=== PATIENT | female | born 1995 | race African-American/Black ===

== ENCOUNTER 2024-08-07 13:31 | Outpatient (CLI) | payer MEDICAID, SELFPAY ==
--- NOTE | ~2024-08-07 | US_ITS ---
EXAM/PROCEDURE: US OB <=14 wk fetus w TV - 08/07/2024 13:49 CDT HISTORY: 29 years old Female with VIABLILITY COMPARISON: None available. TECHNIQUE: Multiple transvaginal images were obtained. FINdINGS: There is a single, live, intrauterine gestation with a heart rate of 175 bpm. The crown-rump length is 1.5 cm, which is equivalent to a 8 week, 0 day gestation. This gives an estimated date of deliver y of 03/19/2025. An unremarkable yolk sac is seen. The gestational sac is unremarkable. There is no myometrial abnormality. The ovaries appear unremark able. No significant free fluid is seen. IMPRESSION: Single live embryo with estimated date of delivery of 03/19/25. Reviewed, dictated and finalized at location A.
--- OUTSIDE RECORDS SUMMARY | 2024-08-07 14:59 | XMS_ITS | Clinical Summary ---
Author Organization [facility] Address [address] [place] [address] Care Team Providers Care Insurance Producer Name Role Phone Lizandro Lovett MD Primary Care Provider [phone] Allergies No known active allergies Medications gabapentin (NEURONTIN) 300 mg capsule Take 1 capsule (300 mg total) by mouth 3 (three) times a day 30 capsule 11/04/2023 5 Active Active Problems Problem Noted Date Diagnosed Date Leukocytosis 11/03/2023 Status post appendectomy 11/02/2023 Sepsis without acute organ dysfunction 4 Intra-abdominal abscess 11/01/2023 Social History Tobacco Use Types Packs/Day Years Used Date Smoking Tobacco: Never Smokeless Tobacco: Never Tobacco Cessation:Counseling Given: Not Answered [facility] Utilities Answer Date Recorded In the past 12 months has [employer] electric, gas, oil, or water company threatened to shut off services in your home? No 11/01/2023 Social Connection and Isolat ion Panel [NHANES] Answer Date Recorded In a typical week, how many times do you talk on the phone with family, friends, or neighbors? More than three times a week 11/01/2023 How often do you get togethe r with friends or relatives? More than three times a week 11/01/2023 How often do you attend chur ch or latter day services? Never 11/01/2023 Do you belong to any clubs o r organizations such as faith groups, unions, fraternal or athletic groups, or school groups? No 11/01/2023 How often do you attend meet ings of the clubs or organizations you belong to? Never 11/01/2023 Are you , , di vorced, , never , or living with a partner? Living with partner 11/01/2023 Overall Financial Resource Strain (CARDIA) Answe r Date Recorded How hard is it for you to pa y for the very basics like food, housing, medical care, and heating? Very hard 11/01/2023 Hunger Vital Sign Answer Date Recorded Within the past 12 months, y ou worried that your food would run out before you got the money to buy more. Never true 11/01/19 24 Within the past 12 months, t he food you bought just didn't last and you didn't have money to get more. Never true 11/01/2023 PRAPARE - Transportation Answer Date Re corded In the past 12 months, has l ack of transportation kept you from medical appointments or from getting medications? No 06/2023 In the past 12 months, has l ack of transportation kept you from meetings, work, or from getting things needed for daily living? No 11/01/2023 Housing Stability Vital Sign Answer Jackson e Recorded In the last 12 months, was t here a time when you were not able to pay the mortgage or rent on time? No 11/01/2023 In the past 12 months, how m any times have you moved where you were living? 0 11/01/2023 At any time in the past 12 m [facility], were you homeless or living in a chcf (including now)? No 11/01/2023 Personal Safety Answer Date Recorded Have you ever been in or are you currently in a harmful physical or emotional relationship or is someone making you feel afraid or unsafe? Denies 11/01/2023 Comments Unknown Sex and Gender Information Value Date Recorded Sex Assigned at Not on file Legal Sex Female 9:48 PM [employer] AP[employer]ENT[employer] Gender Identity Not on file Sexual Orientation Not on file Obstetrics History Last Filed Vital Signs Vital Sign Reading Time Taken Comments Blood Pressure 115/86 11/04/2023 8:35 AM CDT Pulse 86 11/04/2023 8:35 AM CDT Temperature 36.8 C (98.2 F) 11/04/2023 8:35 AM CDT Respiratory Rate 16 11/04/2023 8:35 AM CDT Oxygen Saturation 98% 11/04/2023 8:35 AM CDT Inhaled Oxygen Concentration - - Weight 85 kg (187 lb 8 oz) 11/01/2023 8:02 AM CD T Height 154.9 cm (5' 1 ) 11/01/2023 8:02 AM CDT Body Mass Index 35.43 11/01/2023 8:02 AM CDT Plan of Treatment Health Maintenance Due Date Last Done Comments Cervical Cancer Screening 1995 Depression Screening 1995 Hepatitis C Screening 1995 HPV Vaccines (2 - 2-dose series) 06/21/2010 12/19/2009 Regular Well Visit/Exam 18-64 2013 DTaP/Tdap/Td Vaccine (7 - Td or Tdap) 12/20/2019 12/19/2009, 12/19/2002, 11/26/1998, Additional history exists Influenza Vaccine (Season Ended) 2024 Hepatitis B Screening Completed 02/18/1997 , 1995, 1995 Varicella Vaccines Completed 12/19/2009, 12/19/2002 Pneumococcal vaccine <65 Aged Out No longer eligible based on patient's age to complete this topic Insurance [employer] Advance Directives For more information, please contact: [phone] * Full Code (Latest Code Status on File) Date Activated Date Inactivated Comments 11/01/2023 8:01 AM 11/04/2023 9:37 PM Care Teams Insurance Producer Relationship Specialty Start Date End Date Lizandro Lovett MD [address] [place] [id number] PCP - General Emergency Medicine 11/01/23
--- OUTSIDE RECORDS SUMMARY | 2024-08-07 14:59 | XMS_ITS | Referral Summary ---
Author Organization [facility] Address [address] [place] [address] Care Team Providers Care Baccarat Dealer Name Role Phone Lizandro Lovett MD Primary Care Provider Allergies No known active allergies Medications gabapentin [...] Tobacco: Never Tobacco Cessation:Counseling Given: Not Answered [facility] Utilities Answer Date Recorded In the past 12 months has [employer] electric, gas, oil, or water company threatened [...] often do you attend chur ch or gnosticism services? Never 11/01/2023 Do you belong to any clubs o r organizations such as judaism groups, unions, fraternal or athletic groups, or [...] any time in the past 12 m [facility], were you homeless or living in a half-way (including now)? No 11/01/2023 Personal Safety Answer Date Recorded Have you ever been in or are you currently in a harmful physical or emotional relationship or is someone making you feel afraid or unsafe? Denies 11/01/2023 Comments Unknown Sex and Gender Information Value Date Recorded Sex Assigned at Not on file Legal Sex Female 9:48 PM RN CALL CENTER Gender Identity Not on file Sexual Orientation Not on file Last Filed Vital Signs Vital Sign Reading [...] 11/01/2023 8:02 AM CDT Plan of Treatment Not on file Insurance IDLA ID[employer] Advance Directives For more information, please contact: [phone] * Full Code (Latest Code Status on File) Date Activated Date Inactivated Comments 11/01/2023 8:01 AM 11/04/2023 9:37 PM Care Teams Baccarat Dealer Relationship Specialty Start Date End Date Lizandro Lovett MD [address] [place] [id number] PCP - General Emergency Medicine 11/01/23
== END 2024-08-07 13:32 | disposition home or self-care (01) ==
LOC: ANHIMG 13:37
PROVIDERS: Visit Provider Nurse Practitioner
DX: O36.80X0 Pregnancy with inconclusive fetal viability, not applicable or unspecified (principal); Z3A.00 Weeks of gestation of pregnancy not specified
CPT/HCPCS: 76801; 76817

== ENCOUNTER 2024-12-12 13:00 | Outpatient (RCR) | payer OTHER, SELFPAY | END 2025-02-12 06:23 | disposition home or self-care (01) | LOC: ANHDMC 13:00 | PROVIDERS: Visit Provider Obstetrics & Gynecology Gynecology | DX: O24.419 Gestational diabetes mellitus in pregnancy, unspecified control (principal); Z3A.00 Weeks of gestation of pregnancy not specified; Z71.89 Other specified counseling | CPT/HCPCS: G0108 ==

== ENCOUNTER 2025-02-27 15:10 | Outpatient (CLI) | payer OTHER, SELFPAY ==
--- NOTE | ~2025-02-27 | US_ITS ---
EXAMINATION: US OB follow up DATE: 02/27/2025 16:30 INDICATION: Expected size greater than expected for estimated gestational age TECHNIQUE: Real-time ultrasound of the pelvis was performed. The interpreting radiologist was not present for the study. COMPARISON: None. FINDINGS: There is a single living fetus in vertex presentation. The placenta is anterior and not low-lying. heart rate is 158 beats per minute (bpm). The amniotic fluid index is 7.4 cm, which is slightly beyond the lower limits of normal. (5th%-95%: 7.5-24.4 cm at 37 weeks estimated gestational age). Normal cervical length of 6 cm. The following biometric data were obtained: BPD: 9.1 cm -> 36 weeks 5 days Head circumference: 33.0 cm -> 37 weeks 4 days Abdominal circumference: 32.7 cm -> 36 weeks 4 days Femur length: 6.9 cm -> 35 weeks 2 days These measurements are concordant. Head circumference to abdominal circumference ratio: 1.01 (normal range 0.92-1.06). Estimated weight: 2921 g (+/-) 438 g or 6 lbs. 7 oz. (+/-) 15 oz. IMPRESSION: 1. Single living fetus in vertex presentation with heart rate of 158 bpm. 2. Oligohydramnios with amniotic fluid index of 7.4 similar minimally below the normal range of 7.5-24.4 cm 37 week estimated gestational age. 3. Estimated weight is 26th percentile by Hadlock criteria when 03/15/2025 is used as the estimated date of delivery (COLLETTE). Please correlate with clinical information or earlier ultrasounds for most accurate COLLETTE. Reviewed, dictated and finalized at location A. IMPRESSION: 1. Single living fetus in vertex presentation with heart rate of 158 bpm. 2. Oligohydramnios with amniotic fluid index of 7.4 similar minimally below the normal range of 7.5-24.4 cm 37 week estimated gestational age. 3. Estimated weight is 26th percentile by Hadlock criteria when 5 is used as the estimated date of delivery (COLLETTE). Please correlate with clinic al information or earlier ultrasounds for most accurate COLLETTE.
--- OUTSIDE RECORDS SUMMARY | 2025-02-27 17:18 | XMS_ITS | Clinical Summary ---
Author Organization [facility] Address [address] [place] [id number] Care Team Providers Care Acute Care Registered Nurse Name Role Phone None, Provider MD Primary Care Provider Unavaila ble Encounters Date Type Department Care Team Description 12/06/2024 2:29 PM CDT - 12/06/2024 11:59 PM CDT Hospital Encounter [facility]ound [address] [place], [place] [id number] Nelly Bolivar MD Discharge Disposition: Home or Self Care (Routine Discharge) 12/06/2024 Travel from Last 3 Months Social History Tobacco Use Types Packs/Day Years Used Date Smoking Tobacco: Never Assessed Comments Unknown Sex and Gender Information Value Date Recorded Sex Assigned at Female 12/06/2024 2:23 PM CDT Legal Sex Female 7:45 PM CDT Gender Identity Not on file Sexual Orientation Not on file Plan of Treatment Health Maintenance Due Date Last Done Comments Cervical Cancer Screening Pap Smear (Age 21 to 29) Every 3 Years 1995 Cervical Cancer Screening 1995 Annual Physical 1998 HPV Vaccines (2 - 2-dose series) 06/21/2010 12/19/2009 Hepatitis C 2013 DTaP, Tdap and Td Vaccines (5 - Td or Tdap) 12/20/2019 12/19/2009, 12/19/2002, 11/26/1998, Additional history exists COVID-19 Vaccine ( season) 2024 Influenza Adult (#1) 2025 Hepatitis B Vaccines Completed 02/18/1997, 1995, 1995 Hepatitis A Vaccines Aged Out No long er eligible based on patient's age to complete this topic Meningococcal B Vaccine Aged Out No l onger eligible based on patient's age to complete this topic Meningococcal Vaccine Aged Out No davis carlos eligible based on patient's age to complete this topic Pneumococcal Vaccine: Pediatrics (0 to 5 Years) and At-Risk Patients (6 to 49 Years) Aged Out No longer eligible based on patient's age to complete this topic RSV Immunizations Under 20 Months Aged Out No longer eligible based on patient's age to complete this topic Procedures Procedure Name Priority Date/Time Associated Diagnosis Comments [employer] [facility] Routine 12/06/2024 3:35 PM CDT Maternal care for excessive growth, third trimester, not applicable or unspecified ([facility]) from Last 3 Months Results * [employer] TA (12/06/2024 3:35 PM CDT) Anatomical Region Laterality Modality Abdomen Ultrasound 12/17/2024 3:56 PM CDT Impressions 12/17/2024 4:09 PM CDT =====IMPRESSION:===== Single live intrauterine measuring 25 weeks 3 days gestational age. Ordered By: NELLY BOLIVAR Interpreted By: Lake Lee MD, 12/17/2024 3:56 PM Narrative 12/17/2024 4:09 PM CDT [facility] [address] [place], [place] [address] Exam date/time: 12/06/2024 2:42 PM Examination: Limited OB ultrasound Reason For Exam: Maternal care for excessive growth, third trimester Comparison: None. Findings: Measurements: BPD: 6.13 cm, 24 weeks 6 days HC: 23.82 cm, 25 weeks 6 days AC: 21.45 cm, 26 weeks 0 days FL: 4.54 cm, 25 weeks 0 days Ratios: CI: 77.6 HC/AC: 1.11 FL/BPD: 74.1 FL/HC: 19.1 Ultrasound gestational age: 25 weeks 3 days, COLLETTE 03/18/2025 LMP based gestational age: 25 weeks 4 days, COLLETTE 03/17/2025 Estimated weight: 824 g, 39th percentile based on LMP heart rate: 160 bpm Amniotic fluid index: 16.58 cm Comments: Single live intrauterine in transverse position. Placenta anterior. Amniotic fluid is subjectively unremarkable. anatomy is not assessed on today's exam. Procedure Note Bromide, Lake Handy MD - 12/17/[address] [address] Exam date/time: 12/06/2024 2:42 PM Examination: Limited OB ultrasound Reason For Exam: Maternal care for excessive growth, thirdtrimester Comparison: None. Findings: Measurements: BPD: 6.13 cm, 24 weeks 6 days HC: 23.82 cm, 25 weeks 6 days AC: 21.45 cm, 26 weeks 0 days FL: 4.54 cm, 25 weeks 0 days Ratios: CI: 77.6 HC/AC: 1.11 FL/BPD: 74.1 FL/HC: 19.1 Ultrasound gestational age: 25 weeks 3 days, COLLETTE 03/18/2025 LMP based gestational age: 25 weeks 4 days, COLLETTE 03/17/2025 Estimated weight: 824 g, 39th percentile based on LMP heart rate: 160 bpm Amniotic fluid index: 16.58 cm Comments: Single live intrauterine in transverse position.Placenta anterior. Amniotic fluid is subjectively unremarkable. Fetalanatomy is not assessed on today's exam. =====IMPRESSION:===== Single live intrauterine measuring 25 weeks 3 days gestationalage. Ordered By: NELLY BOLIVAR Interpreted By: Lake Lee MD, 12/17/2024 3:56 PM us Nelly Bolivar MD ULTRASOUND Final Res ult from Last 3 Months Insurance Care Teams Acute Care Registered Nurse Relationship Specialty Start Date End Date None, Provider, PCP - General UNKNOWN PHYSICIAN SPECIALTY 12/06/24
--- OUTSIDE RECORDS SUMMARY | 2025-02-27 17:18 | XMS_ITS | Clinical Summary ---
Author Organization [facility] Address [address] [place] [id number] Care Team Providers Care Head Inspector Name Role Phone No, Physician Primary Care Provider [phone] Allergies No known active allergies Medications gabapentin (NEURONTIN) 300 mg capsule Take 1 capsule (300 mg total) by mouth 3 (three) times a day 30 capsule 11/04/2023 Active Active Problems Problem Noted Date Diagnosed Date Leukocytosis 11/03/2023 Status post appendectomy 11/02/2023 Sepsis without acute organ dysfunction Intra-abdominal abscess 11/01/2023 Encounters Date Type Department Care Team Description 01/18/2025 3:47 PM CDT - 01/18/2025 11:59 PM CDT Hospital Encounter [address] [address] Excessive growth affecting management of in third trimester, single or unspecified fetus Discharge Disposition: Discharge to home or self care 01/09/2025 1:50 PM CDT Lab [facility] [address] [place] [id number] 12/21/2024 2:10 PM CDT Lab [facility] [address] [place] [id number] from Last 3 Months Social History Tobacco Use Types Packs/Day Years Used Date Smoking Tobacco: Never Smokeless Tobacco: Never Tobacco Cessation:Counseling Given: Not Answered [facility] Utilities Answer Date Recorded In the past 12 months has [employer], gas, oil, or water company threatened to shut off services in your home? No 11/01/2023 Social Connection and Isolation Panel Answer Date Recorded In a typical week, how many times do you talk on the phone with family, friends, or neighbors? More than three times a week 11/01/2023 How often do you get togethe r with friends or relatives? More than three times a week 11/01/2023 How often do you attend chur ch or mosque services? Never 11/01/2023 Do you belong to any clubs o r organizations such as anabaptist groups, unions, fraternal or athletic groups, or [...] any time in the past 12 m [facility], were you homeless or living in a skilled nursing (including now)? No 11/01/2023 Personal Safety Answer Date Recorded Have you ever been in or are you currently in a harmful physical or emotional relationship or is someone making you feel afraid or unsafe? 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[employer] Gender Identity Not on file Sexual Orientation [...] AM CD T Height 154.9 cm (5' 1) 11/01/2023 8:02 AM CDT Body Mass Index 35.43 11/01/2023 8:02 AM CDT Plan of Treatment Health Maintenance Due Date Last Done Comments Cervical Cancer Screening 1995 Depression Screening 1995 HPV Vaccines (2 - 2-dose series) 06/21/2010 12/19/2009 Regular Well Visit/Exam 18-64 2013 DTaP/Tdap/Td Vaccine (7 - Td or Tdap) 12/20/2019 12/19/2009, 12/19/2002, 11/26/1998, Additional history exists Influenza Vaccine (#1) 2024 Hepatitis B Screening Completed 02/18/1997 , 1995, 1995 Varicella Vaccines Completed 12/19/2009, 12/19/2002 Hepatitis C Screening Completed 10/03/2024 Pneumococcal vaccine <65 Aged Out No longer eligible based on patient's age to complete this topic Procedures Procedure Name Priority Date/Time Associated Diagnosis Comments US OB LIMITED Schedule Routine, Read Routine (OP Routine) 01/18/2025 4:37 PM CDT Excessive growth affecting management of in third trimester, single or unspecified fetus DIFFERENTIAL AUTO Routine 01/09/2025 1:5 8 PM CDT CBC WITH AUTO DIFFERENTIAL Routine 01/09/2025 1:58 PM CDT VITAMIN D 25 HYDROXY Routine 12/21/2024 2:32 PM CDT HEMOGLOBIN A1C Routine 12/21/2024 2:32 PM CDT HIV 1/2 ANTIBODY PLUS P24 ANTIGEN Routine 12/21/2024 2:32 PM CDT RPR Routine 12/21/2024 2:32 PM CDT HEPATITIS C ANTIBODY Routine 10/03/2024 4:06 PM CDT from Last 3 Months or Most Recently Relevant to Health Maintenance Results * US OB Limited (01/18/2025 4:37 PM CDT) Anatomical Region Laterality Modality Abdomen N/A Ultrasound 01/21/2025 4:42 AM CDT Narrative 01/21/2025 5:59 AM CDT EXAM DESCRIPTION: US OB LIMITED REASON FOR STUDY: Excessive growth TECHNIQUE: Limited transabdominal grayscale ultrasound for obstetrical evaluation. COMPARISON: 10/24/2024 FINDINGS: Clinical gestational age: 31 weeks 5 days Clinical estimated Due Date: 03/17/2025 number: 1 Presentation: Cephalic Placenta location: Anterior Amniotic fluid: OSMAR 18 cm. MVP 5.7 cm heart rate: 178 bpm measurements: Biparietal diameter: 8.03 cm ( 32 weeks 2 days ) Head circumference: 28.92 cm ( 31 weeks 6 days ) Abdominal circumference: 28.34 cm ( 32 weeks 3 days ) Femur length: 6.29 cm ( 32 weeks 4 days ) Ratios: FL/AC: 22.19 (20-24) HC/AC: 1.02 ( 0.96 - 1.13 ) Gestational age by this ultrasound: 32 weeks 2 days +/-2 weeks 2 days COLLETTE by this ultrasound: 03/13/2025 Estimated weight by this ultrasound: 1957 g +/-294 g (4 pounds 5 ounces +/-10 ounces) g ( ) EFW percentile (based on LMP ): 60.2 % Cervical length: Not assessed on this study Other: IMPRESSION: 1. Single living intrauterine . Gestational age is 32 weeks 2 days +/-2 weeks 2 days, consistent with an estimated date of delivery of 03/13/2025. This is 4 days earlier than projected by clinical dates 2. weight in the 60th percentile. 3. OSMAR within normal limits. THIS IS AN ELECTRONICALLY VERIFIED FINAL REPORT 01/21/2025 5:59 AM - Electronically signed by Lazara Jacob M.D. TW T: Report ID: [id number] Reading Location: [id number] Procedure Note Lazara Jacob MD - 01/21/2025 EXAM DESCRIPTION: US OB LIMITED REASON FOR STUDY: Excessive growth TECHNIQUE: Limited transabdominal grayscale ultrasound for obstetrical evaluation. COMPARISON: 10/24/2024 FINDINGS: Clinical gestational age: 31 weeks 5 days Clinical estimated Due Date: 03/17/2025 number: 1 Presentation: Cephalic Placenta location: Anterior Amniotic fluid: OSMAR 18 cm. MVP 5.7 cm heart rate: 178 bpm measurements: Biparietal diameter: 8.03 cm ( 32 weeks 2 days ) Head circumference: 28.92 cm ( 31 weeks 6 days ) Abdominal circumference: 28.34 cm ( 32 weeks 3 days ) Femur length: 6.29 cm ( 32 weeks 4 days ) Ratios: FL/AC: 22.19 (20-24) HC/AC: 1.02 ( 0.96 - 1.13 ) Gestational age by this ultrasound: 32 weeks 2 days +/-2 weeks 2 days COLLETTE by this ultrasound: 03/13/2025 Estimated weight by this ultrasound: 1957 g +/-294 g (4 pounds 5 ounces +/-10 ounces) g ( ) EFW percentile (based on LMP ): 60.2 % Cervical length: Not assessed on this study Other: IMPRESSION: 1. Single living intrauterine . Gestational age is 32 weeks 2days +/-2 weeks 2 days, consistent with an estimated date of delivery of 03/13/2025. This is 4 days earlier than projected by clinical dates 2. weight in the 60th percentile. 3. OSMAR within normal limits. THIS IS AN ELECTRONICALLY VERIFIED FINAL REPORT 01/21/2025 5:59 AM - Electronically signed by Lazara Jacob M.D. TW T: Report ID: [id number] Reading Location: [id number] us Nelly Bolivar MD IMG OB US PROCEDURES Fin al Result * Differential, auto (01/09/2025 1:58 PM CDT) Pathologist [facility] Neutrophil abs 4.85 1.50 - 6.50 K/cumm Imm gran abs 0.02 0.00 - 0.10 K/cumm [facility] Lymphocyte abs 1.66 0.80 - 3.30 K/cumm [facility] Monocyte abs 0.63 0.20 - 0.80 K/cumm [facility] Eosinophil abs 0.03 0.00 - 0.50 K/cumm [facility] Basophil abs 0.02 0.00 - 0.10 K/cumm [facility] Neutrophil pct 67.3 % [facility] Comment: Interpretive Data Percent cell count reference ranges are not reported, since discordance with absolute values may lead to misinterpretation of CBC data. Current Interpretive Data was last revised on 2017. Imm gran pct 0.3 % [facility] Comment: Interpretive Data Percent cell count reference ranges are not reported, since discordance with absolute values may lead to misinterpretation of CBC data. Current Interpretive Data was last revised on 2017. Lymphocyte pct 23.0 % [facility] Comment: Interpretive Data Percent cell count reference ranges are not reported, since discordance with absolute values may lead to misinterpretation of CBC data. Current Interpretive Data was last revised on 2017. Monocyte pct 8.7 % [facility] Comment: Interpretive Data Percent cell count reference ranges are not reported, since discordance with absolute values may lead to misinterpretation of CBC data. Current Interpretive Data was last revised on 2017. Eosinophil pct 0.4 % [facility] Comment: Interpretive Data Percent cell count reference ranges are not reported, since discordance with absolute values may lead to misinterpretation of CBC data. Current Interpretive Data was last revised on 2017. Basophil pct 0.3 % [facility] Comment: Interpretive Data Percent cell count reference ranges are not reported, since discordance with absolute values may lead to misinterpretation of CBC data. Current Interpretive Data was last revised on 2017. Blood 01/09/2025 1:58 PM CDT 01/09/2025 2:25 PM CDT Patience Bean NP LAB BLOOD ORDERABLES Final Result Performing Organization Address [facility] Co de Phone Number [address] [employer] [place] [address] * (ABNORMAL) CBC with auto differential (01/09/2025 1:58 PM CDT) Pathologist [facility] WBC 7.21 3.80 - 9.90 K/cumm Hgb 10.2(L) 11.9 - 15.5 g/dL [facility] Hct 30.7(L) 35.6 - 45.5 % [facility] Plt 240 150 - 400 K/cumm [facility] MPV 11.6 9.1 - 12.3 fL [facility] RBC 3.54(L) 3.90 - 5.20 M/cumm [facility] MCV 86.7 81.3 - 96.4 fL [facility] MCH 28.8 27.1 - 33.3 pg [facility] MCHC 33.2 32.3 - 35.7 g/dL [facility] RDW CV 14.8 11.1 - 14.9 % [facility] RDW SD 47.5 35.7 - 48.1 fL [facility] NRBC abs 0.00 0.00 - 0.01 K/cumm [facility] Blood 01/09/2025 1:58 PM CDT 01/09/2025 2:25 PM CDT Patience Bean NP LAB BLOOD ORDERABLES Final Result Performing Organization Address [facility] Co de Phone Number [address] [employer] [place] [address] * HIV 1/2 Antibody plus p24 Antigen Blood (12/21/2024 2:32 PM CDT) HIV 1/2 ab + p24 ag Nonreactive Nonreactive Comment:Nonreactive for HIV- 1 antigen and HIV-1/HIV-2 antibodies. No laboratory evidence of HIV infection. If acute HIV infection is suspected, consider testing for HIV-1 RNA. Current interpretive data was last revised on 21. Blood 12/21/2024 2:32 PM CDT 12/21/2024 2:41 PM CDT us Nelly Bolivar MD LAB MICROBIOLOGY - GENER AL ORDERABLES Final Result Performing Organization Address [facility] Co de Phone Number [address] [employer] [place] [address] * Vitamin D 25 hydroxy (12/21/2024 2:32 PM CDT) Pathologist [facility] Vitamin D 25-OH 47.0 30.0 - 80.0 ng/mL Blood 12/21/2024 2:32 PM CDT 12/21/2024 2:41 PM CDT Nelly Bolivar MD LAB BLOOD ORDERABLES Fin al Result Performing Organization Address [facility] Co de Phone Number [address] [employer] [place] [address] * RPR Blood (12/21/2024 2:32 PM CDT) Pathologist [facility] RPR Nonreactive Nonreactive Comment:Testing performed by : [facility], [address] [facility], [place]., [address] Blood 12/21/2024 2:32 PM CDT 12/21/2024 5:32 PM CDT Nelly Bolivar MD LAB MICROBIOLOGY - GENER AL ORDERABLES Final Result Performing Organization Address [facility] Co de Phone Number [facility] [address] [place] [address] * Hemoglobin A1c (12/21/2024 2:32 PM CDT) [facility] Hgb A1C 5.4 4.0 - 5.6 % Estimated Average Glucose 108 mg/dL [facility] Comment: The ADA recommends reporting an estimated Average Glucose (eAG) with all Hemoglobin A1c results using the equation derived from a study of 507 normal and diabetic adults. Minority populations were underrepresented and children were not included. (Diabetes Care 31:3492-6919, 2008). The eAG is not equivalent to a fasting glucose. Blood 12/21/2024 2:32 PM CDT 12/21/2024 2:41 PM CDT Nelly Bolivar MD LAB BLOOD ORDERABLES Fin al Result Performing Organization Address [facility] Co de Phone Number [phone] [place] [address] * Hepatitis C antibody Blood (10/03/2024 4:06 PM CDT) [facility] Hep C Ab Nonreactive Nonreactive Comment: Antibodies to HCV not detected. Does NOT exclude the possibility of recent exposure to HCV. Current interpretive data was last revised on 21 Interpretive Data Nonreactive: Antibodies to HCV not detected. Does NOT exclude the possibility of recent exposure to HCV. Equivocal: Equivocal for HCV antibodies. Supplemental molecular testing will be automatically performed to determine infection status in accordance with current CDC screening recommendations. Reactive: Positive for HCV antibodies. This may represent current or past HCV infection. Supplemental molecular testing will be automatically performed to determine current infection status in accordance with current CDC screening recommendations. Interpretive data was last revised on 2019. Blood 10/03/2024 4:06 PM CDT 10/03/2024 4:12 PM CDT Nelly Bolivar MD LAB MICROBIOLOGY - GENER AL ORDERABLES Final Result Performing Organization Address [facility] Co de Phone Number [phone] [place] [address] from Last 3 Months or Most Recently Relevant to Health Maintenance Insurance [facility] Advance Directives For more information, please contact: [phone] * Full Code (Latest Code Status on File) Date Activated Date Inactivated Comments 11/01/2023 8:01 AM 11/04/2023 9:37 PM Care Teams Head Inspector Relationship Specialty Start Date End Date No, Physician PCP - General 10/17/24
== END 2025-02-27 15:11 | disposition home or self-care (01) ==
PROVIDERS: Visit Provider Obstetrics & Gynecology Gynecology
DX: O36.63X0 Maternal care for excessive fetal growth, third trimester, not applicable or unspecified (principal); Z3A.00 Weeks of gestation of pregnancy not specified; O41.00X0 Oligohydramnios, unspecified trimester, not applicable or unspecified
CPT/HCPCS: 76816

== ENCOUNTER 2025-03-05 12:00 | Outpatient (RCR) | payer OTHER, SELFPAY ==
--- NOTE | ~2025-03-05 | US_ITS ---
EXAMINATION: US OB BPP wo non-stress DATE: 03/05/2025 13:06 JIGGER MACHINE OPERATOR INDICATION: Nonreactive NST TECHNIQUE: Real-time transabdominal obstetric ultrasound. FINDINGS: No prior studies for comparison. There is a single living fetus in vertex presentation. The placenta is anterior without placenta previa. cardiac activity and movement is noted with a heart rate of 153 beats per minute. Biophysical profile: breathin of 2 movement: 2 of 2 tone: 2 of 2 Amniotic flud pocket: 2 of 2 Total score: 8 of 8 OSMAR is within normal limits measuring 8.1 cm. IMPRESSION: 1. Single living intrauterine in vertex presentation. 2: Total biophysical profile score of 8/8. Reviewed, dictated and finalized at location O. ER MACHINE OPERATOR
== END 2025-03-19 07:17 | disposition other institution (70) ==
LOC: ANHOBOP 12:00
PROVIDERS: Visit Provider Obstetrics & Gynecology Gynecology
DX: O26.899 Other specified pregnancy related conditions, unspecified trimester (principal); Z3A.00 Weeks of gestation of pregnancy not specified
CPT/HCPCS: 76819

== ENCOUNTER 2025-03-10 16:50 | Inpatient (IN) | payer OTHER, SELFPAY ==
[2025-03-10] VITALS (9 sets, daily range): BP systolic 104–120; BP diastolic 62–75; PULSE 86–107; RESP 16; TEMP 36.5–36.7; BMI 39.9
--- OUTSIDE RECORDS SUMMARY | 2025-03-10 16:56 | XMS_ITS | Clinical Summary ---
Author Organization [facility] Address [address] [place] [id number] Care Team Providers Care Galley Worker Name Role Phone None, Provider MD Primary Care Provider Unavaila ble Social History Tobacco Use Types Packs/Day Years [...] patient's age to complete this topic Insurance Care Teams Galley Worker Relationship Specialty Start Date End Date None, Provider, MD PCP - General UNKNOWN PHYSICIAN SPECIALTY 12/06/24
--- OUTSIDE RECORDS SUMMARY | 2025-03-10 16:56 | XMS_ITS | Clinical Summary ---
Author Organization [facility] Address [address] [place] [id number] Care Team Providers Care Senior Mechanical Project Manager Name Role Phone No, Physician Primary Care Provider [phone] Allergies No known active allergies Medications gabapentin [...] - 01/18/2025 11:59 PM CDT Hospital Encounter [address] [address] Excessive growth affecting management of in third trimester, single or unspecified fetus Discharge Disposition: Discharge to home or self care 01/09/2025 1:[address] [facility] Lab [address] [place] [id number] 12/21/2024 2:[address] [facility] [address] [place] [id number] from Last 3 Months Social History Tobacco Use Types Packs/Day Years Used Date Smoking Tobacco: Never Smokeless Tobacco: Never Tobacco Cessation:Counseling Given: Not Answered [facility] Utilities Answer Date Recorded In the past 12 months has [employer], gas, oil, or water company threatened to [...] often do you attend chur ch or hoahaoism services? Never 11/01/2023 Do you belong to any clubs o r organizations such as yazidism groups, unions, fraternal or athletic groups, or [...] any time in the past 12 m [facility] [place], were you homeless or living in a mcc (including now)? No 11/01/2023 Personal Safety Answer Date Recorded Have you ever been in or are you currently in a harmful physical or emotional relationship or is someone making you feel afraid or unsafe? 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 TW T: Report ID: [id number] Reading Location: [id number] Procedure Note Lazara Jacob MD - 01/21/2025 [...] Lazara Jacob M.D. TW T: Report ID: [id number] Reading Location: [id number] us Nelly Bolivar MD IMG OB US PROCEDURES Fin al Result * Differential, auto (01/09/2025 1:58 PM CDT) Neutrophil abs 4.85 1.50 - 6.50 K/cumm Imm gran abs 0.02 0.00 - 0.10 K/cumm [facility] Lymphocyte abs 1.66 0.80 - 3.30 K/cumm [facility] Monocyte abs 0.63 0.20 - 0.80 K/cumm [facility] Eosinophil abs 0.03 0.00 - 0.50 K/cumm [facility] Basophil abs 0.02 0.00 - 0.10 K/cumm [facility] Neutrophil pct 67.3 % [facility] Comment: Interpretive Data Percent cell count reference ranges are not reported, since discordance with absolute values may lead to misinterpretation of CBC data. Current Interpretive Data was last revised on 2017. Imm gran pct 0.3 % [facility] Comment: Interpretive Data Percent cell count reference ranges are not reported, since discordance with absolute values may lead to misinterpretation of CBC data. Current Interpretive Data was last revised on 2017. Lymphocyte pct 23.0 % [facility] Comment: Interpretive Data Percent cell count reference ranges are not reported, since discordance with absolute values may lead to misinterpretation of CBC data. Current Interpretive Data was last revised on 2017. Monocyte pct 8.7 % [facility] Comment: Interpretive Data Percent cell count reference ranges are not reported, since discordance with absolute values may lead to misinterpretation of CBC data. Current Interpretive Data was last revised on 2017. Eosinophil pct 0.4 % [facility] Comment: Interpretive Data Percent cell count reference ranges are not reported, since discordance with absolute values may lead to misinterpretation of CBC data. Current Interpretive Data was last revised on 2017. Basophil pct 0.3 % [facility] Comment: Interpretive Data Percent cell count reference ranges are not reported, since discordance with absolute values may lead to misinterpretation of CBC data. Current Interpretive Data was last revised on 2017. Blood 01/09/2025 1:58 PM CDT 01/09/2025 2:25 PM CDT Patience Bean ROCKET ENGINE TESTER LAB BLOOD ORDERABLES Final Result Performing Organization Address [facility] Co de Phone Number [address] [place] [address] * (ABNORMAL) CBC with auto differential (01/09/2025 1:58 PM CDT) WBC 7.21 3.80 - 9.90 K/cumm Hgb 10.2(L) 11.9 - 15.5 g/dL [facility] Hct 30.7(L) 35.6 - 45.5 % [facility] Plt 240 150 - 400 K/cumm [facility] MPV 11.6 9.1 - 12.3 fL [facility] RBC 3.54(L) 3.90 - 5.20 M/cumm [facility] MCV 86.7 81.3 - 96.4 fL [facility] MCH 28.8 27.1 - 33.3 pg [facility] MCHC 33.2 32.3 - 35.7 g/dL [facility] RDW CV 14.8 11.1 - 14.9 % [facility] RDW SD 47.5 35.7 - 48.1 fL [facility] NRBC abs 0.00 0.00 - 0.01 K/cumm [facility] Blood 01/09/2025 1:58 PM CDT 01/09/2025 2:25 PM CDT Patience Bean NP LAB BLOOD ORDERABLES Final Result Performing Organization Address [facility]/ZIP Co de Phone Number [address] [place] [place] [address] * HIV 1/2 Antibody plus p24 Antigen [...] AL ORDERABLES Final Result Performing Organization Address [facility] Co de Phone Number [address] [place] [address] * Vitamin D 25 hydroxy (12/21/2024 2:32 PM CDT) Pathologist [facility] Vitamin D 25-OH 47.0 30.0 - 80.0 ng/mL Blood 12/21/2024 2:32 PM CDT 12/21/2024 2:41 PM CDT Nelly Bolivar MD LAB BLOOD ORDERABLES Fin al Result Performing Organization Address [facility] Co de Phone Number [address] [place] [address] * RPR Blood (12/21/2024 2:32 PM CDT) Pathologist [facility] RPR Nonreactive Nonreactive Comment:Testing performed by : [facility], [address] [facility], [place]., [address] Blood 12/21/2024 2:32 PM CDT 12/21/2024 5:32 PM CDT Nelly Bolivar MD LAB MICROBIOLOGY - GENER AL ORDERABLES Final Result Performing Organization Address [facility] Co de Phone Number [address] [place] [address] * Hemoglobin A1c (12/21/2024 2:32 PM CDT) Pathologist [facility] Hgb A1C 5.4 4.0 - 5.6 % Estimated Average Glucose 108 mg/dL VERONICA Comment: The ADA recommends reporting an estimated Average Glucose (eAG) with all Hemoglobin A1c results using the equation derived from a study of 507 normal and diabetic adults. Minority populations were underrepresented and children were not included. (Diabetes Care 31:3278-0687, 2008). The eAG is not equivalent to a fasting glucose. Blood 12/21/2024 2:32 PM CDT 12/21/2024 2:41 PM CDT Nelly Bolivar MD LAB BLOOD ORDERABLES Fin al Result Performing Organization Address [facility] de Phone Number [phone] [place] [address] * Hepatitis C antibody Blood (10/03/2024 4:06 PM CDT) [facility] Hep C Ab Nonreactive Nonreactive Comment: [...] AL ORDERABLES Final Result Performing Organization Address [facility] de Phone Number [phone] [facility] [place] [address] from Last 3 Months or Most Recently Relevant to Health Maintenance Insurance [facility] Advance Directives For more information, please contact: [phone] * Full Code (Latest Code Status on File) Date Activated Date Inactivated Comments 11/01/2023 8:01 AM 11/04/2023 9:37 PM Care Teams Senior Mechanical Project Manager Relationship Specialty Start Date End Date No, Physician PCP - General 10/17/24
--- OUTSIDE RECORDS SUMMARY | 2025-03-10 16:56 | XMS_ITS ---
Author Organization [facility] Source Produ ction (ClinicalSummary Clone) Address Unknown Care Team Providers Care Polisher Sand Name Role Phone Unavailable Primary Care Physician Unavailab le Results * [UNITY] ANEUPLOIDY NIPT Performed by: FUJIAN HAIYUAN Component Value Range Date Fraction 7.2% 11/09/2024 03 :06 am [facility] Sex Chromosome Aneuploidy NOT DETECTED 03:06 am [facility] Monosomy X LOW RISK <1 in 10,000 2024 03:06 am [facility] Trisomy 13 LOW RISK <1 in 10,000 2024 03:06 am [place] Trisomy 18 LOW RISK <1 in 10,000 2024 03:06 am UTC Trisomy 21 LOW RISK <1 in 10,000 2024 03:06 am [facility] Sex FEMALE 11/09/2024 03:0 6 am [facility] Gestation JONES 11/10/19 03:06 am [facility] For detailed report, see PDF See PDF 11/09/2024 03:06 am UTC 11/09/2024 03:0 6 am [facility] Social History Observation Value Start Date End Date
--- OUTSIDE RECORDS SUMMARY | 2025-03-10 16:56 | XMS_ITS ---
Author Organization [facility] Source Produ ction (ClinicalSummary Clone) Address Unknown Care Team Providers Care Tractor Mechanic Name Role Phone Unavailable Primary Care Physician Unavailab le Results * [UNITY] CARRIER SCREEN Performed by: [employer] Component Value Range Date Sickle Cell Disease/Beta-Thalassemia/Hemo globinopathies carrier screen NEGATIVE 11/10/2024 06:37 am [facility] Alpha-Thalassemia carrier screen NEGATIVE 11/10/2024 06:37 am [facility] Cystic Fibrosis carrier screen NEGATIVE 11/10/2024 06:37 am [facility] Spinal Muscular Atrophy carrier screen NEGATIVE 2 SMN1 copies, SNP not present 11/10/2024 06:37 am [facility] For detailed report, see PDF See PDF 11/10/2024 06:37 am [facility] 11/10/2024 06:3 7 am [facility] Social History Observation Value Start Date End Date
--- NOTE | 2025-03-10 17:09 | LDADM ---
This patient, Kerri Jones, was admitted to Labor/Delivery/Recovery 104 on 03/10/25 at 16:50. Plans for labor, pain management and were discussed with patient. Patient/family oriented to hospital policies and general routines including ID bracelet, bed and alarms, visiting hours, pain management, procedures, bathroom and other care routines, personal items, smoking policy, room service/diet and guest tray routines, infant security routines, and visiting hours. Patient/Family are encouraged to report perceived risks to care and to ask questions if they do not understand what they are told or what they should do. See OBIX for further documentation.
[2025-03-10 17:37] LABS: Hematocrit 31.7 % (37.0-47.0); Hemoglobin 10.7 g/dL (12.0-15.0); Immature Granulocyte Percent A 0.5 % (0-0.5); Lymphocytes Absolute Auto 1.36 K/mm3 (0.9-3.2); Mean Corpuscular HGB Conc 33.8 g/dl (32-36); Mean Corpuscular Hemoglobin 29.6 pg (26-34); Mean Corpuscular Volume 87.8 fl (80-100); Nucleated Red Blood Cells Absolute Auto 0.000 K/mm3 (0.0-0.012); Nucleated Red Blood Cells Perc 0.0 % (0.0-0.2); Platelet Count Result 191 k/mm3 (150-375); Red Blood Count 3.61 M/mm3 (4.2-5.4); White Blood Count 6.0 K/mm3 (4.5-10.0)
[2025-03-10] MEDS: DINOPROSTONE 10 MG VAG INSERT VAGINAL (17:48)
[2025-03-10 19:02] LABS: Syphilis IgG/IgM Antibody Non-Reactive (Nonreactive)
[2025-03-10] MEDS: INSULIN HUMAN NPH (*BKC) 100 UNITS/ML 10 UNITS SUB-Q (22:49)
[2025-03-11] VITALS (314 sets, daily range): BP systolic 69–147; BP diastolic 42–110; PULSE 60–114; RESP 16; TEMP 36.4–36.8; O2SAT 78–100
[2025-03-11] MEDS: LACTATED RINGERS 500 ML 999 ML IV CONT (05:17)
[2025-03-11] MEDS: LACTATED RINGERS 1,000 ML 125 ML IV CONT ×3 (05:55→17:16)
[2025-03-11] MEDS: OXYTOCIN 30 UNITS/NS 500 ML 30 UNITS/500 ML BAG 6 UNITS IV CONT (05:56)
--- NOTE | 2025-03-11 11:57 | WPDOBADMIT ---
Obstetrics - Admit Note Admission Note: record reviewed. No pertinent additions to the history and/or any subsequent changes in the physical findings that are not consistent with the expected course of the were found. Additions to the history and/or subsequent changes in the physical findings follow. Here for MIL for GDMA2. Cervadil overnight. Now Pitocin per protocol. Cervix 50/-3 AROM with clear fluid. FHTs category I. Continue induction.
[2025-03-11] MEDS: fentaNYL CITRATE INJ (*CRX) 100 MCG/2 ML VIAL 50 MCG IV PUSH (17:36)
--- NOTE | 2025-03-11 20:09 | WPDANESEPP ---
Anes - Eval Pre Procedure Procedure: LABOR PAIN MANAGEMENT Date/Time: 03/11/25 20:09 Surgeon: JAK Preop Diagnosis: PAIN DURING LABOR Pre Op Diagnosis: IOL Patient Data Age: 29 Gender: F Height: 1.55 m Weight: 95.9 kg Last Vital Signs Temp 97.7 F 03/11/25 19:00 Pulse 96 03/11/25 20:01 Resp 16 03/11/25 02:01 BP 112/60 03/11/25 20:01 Pulse Ox 96 03/11/25 20:05 O2 Del Method Room Air 03/10/25 17:24 Allergies Allergy/AdvReac Type Severity Reaction Status Date / Time No Known Allergies Allergy Verified 03/10/25 17:14 Home Medications ?Medication ?Instructions ?Recorded ?Confirmed ?Type ferrous sulfate 325 mg (65 mg 325 mg PO DAILY 02/20/25 03/10/25 History iron) tablet (Feosol) insulin NPH isoph U-100 human 100 10 unit subcut QPM 02/20/25 03/10/25 History unit/mL subcutaneous cartridge vit no.95-ferrous 1 tablet PO DAILY 02/20/25 03/10/25 History fumarate 28 mg-folic acid 800 mcg tablet () ergocalciferol (vitamin D2) 1,250 50,000 unit PO WEEKLY 03/10/25 03/10/25 History mcg (50,000 unit) capsule Laboratory Tests 03/10/25 03/11/25 03/11/25 22:36 02:26 06:22 POC Capillary Glucose 79 mg/dl 77 mg/dl 73 mg/dl (65-105) (65-105) (65-105) 03/11/25 03/11/25 03/11/25 10:27 14:28 14:30 POC Capillary Glucose 77 mg/dl 108 H mg/dl 112 H mg/dl (65-105) (65-105) (65-105) 03/11/25 18:27 POC Capillary Glucose 110 H mg/dl (65-105) Patient hx anesthesia problems: none Family hx anesthesia problems: none Results Review: All pre-operative results and documents have been reviewed as part of the pre-operative evaluation. [facility] Family History Family History Other No pertinent family history Social History Social History Smoking status: Never smoker Substance use: never Lack of Transportation: No Lack of Food: Never True Current Housing: I Have Housing Concerned About Future Housing: No Difficulty Paying Gas/Electric Bills: No Difficulty Paying for Meds: No Currently Unemployed: No Education: High School Diploma/GED Difficulty w/ Childcare or Family Care: No Spiritual care concerns: No Exam Day of Procedure 03/11/25 20:09
[2025-03-11] MEDS: fentaNYL CITRATE INJ (*CRX) 100 MCG/2 ML VIAL IV PUSH (22:27)
[2025-03-11] MEDS: INSULIN HUMAN NPH (*BKC) 100 UNITS/ML 10 UNITS SUB-Q (22:33)
[2025-03-12] VITALS (144 sets, daily range): BP systolic 95–225; BP diastolic 46–208; PULSE 25–148; RESP 12–18; TEMP 36.6–37.2; O2SAT 94–100
[2025-03-12] MEDS: OXYTOCIN 30 UNITS/NS 500 ML 30 UNITS/500 ML BAG 6 UNITS IV CONT (02:41)
[2025-03-12] MEDS: LACTATED RINGERS 1,000 ML 125 ML IV CONT ×2 (05:30)
--- NOTE | 2025-03-12 06:24 | PM.IMHP ---
H&P: HPI History of Present Illness Date/Time: 03/12/25 06:24 Chief Complaint: intolerance of labor Narrative: 29-year-old 1 at 39 and 3/7 weeks admitted on 03/10 for medical induction of labor with Cervidil. Pitocin was started the morning of 03/11. Patient had slow progress to 2cm. Membranes were ruptured with clear fluid. Patient had good contraction pattern throughout most of yesterday. She had no further cervical change. Patient had several Pitocin breaks to try and proceed with the induction. The uterus began having elevated resting tone and Pitocin had to be turned off several times through the night. heart tones have remained category 1. At 0600 the fetus had a 5minute deceleration. Pitocin was again been turned off. After discussing with the patient the inability to get a good contraction pattern and the now intolerance of labor she has decided to proceed with a . Patient questions were answered. Risks and benefits continuing vaginal attempt versus were discussed. Surgical risk was reviewed. Patient voiced understanding and agrees to proceed. labs B positive rubella immune RPR negative HIV negative group B strep negative. Hemoglobin A1c at the 1st visit was 5.8. Her 3hour GTT failed and the patient was diagnosed with early gestational diabetes. She has been under good control with diet NPH insulin at bedtime. has been otherwise uncomplicated. Review of Systems Review of Systems: not repeated day of surgery; patient states no changes in status [facility] Surgical History Surgical History (Updated 03/12/25 @ 06:29 by Nelly Bolivar MD) Status post appendectomy Family History Family History Other No pertinent family history Social History Social History Smoking status: Never smoker Substance use: never Lack of Transportation: No Lack of Food: Never True Current Housing: I Have Housing Concerned About Future Housing: No Difficulty Paying Gas/Electric Bills: No Difficulty Paying for Meds: No Currently Unemployed: No Education: High School Diploma/GED Difficulty w/ Childcare or Family Care: No Spiritual care concerns: No Meds Home Medications and Allergies Home Medications ?Medication ?Instructions ?Recorded ?Confirmed ?Type ferrous sulfate 325 mg (65 mg 325 mg PO DAILY 02/20/25 03/10/25 History iron) tablet (Feosol) insulin NPH isoph U-100 human 100 10 unit subcut QPM 02/20/25 03/10/25 History unit/mL subcutaneous cartridge vit no.95-ferrous 1 tablet PO DAILY 02/20/25 03/10/25 History fumarate 28 mg-folic acid 800 mcg tablet () ergocalciferol (vitamin D2) 1,250 50,000 unit PO WEEKLY 03/10/25 03/10/25 History mcg (50,000 unit) capsule Allergies Allergy/AdvReac Type Severity Reaction Status Date / Time No Known Allergies Allergy Verified 03/10/25 17:14 Vital Signs Vital Signs - 24 hr 03/11/25 06:28 03/11/25 06:29 03/11/25 06:31 Temperature Pulse Rate 97 Blood Pressure 128/86 Pulse Oximetry 100 99 03/11/25 06:34 03/11/25 06:39 03/11/25 06:44 Temperature Pulse Rate Blood Pressure Pulse Oximetry 100 100 100 03/11/25 06:49 03/11/25 06:52 03/11/25 06:57 Temperature Pulse Rate Blood Pressure Pulse Oximetry 100 100 100 03/11/25 07:01 03/11/25 07:02 03/11/25 07:07 Temperature Pulse Rate 81 Blood Pressure 115/71 Pulse Oximetry 100 100 03/11/25 07:12 03/11/25 07:17 03/11/25 07:22 Temperature Pulse Rate Blood Pressure Pulse Oximetry 99 100 100 03/11/25 07:27 03/11/25 08:02 03/11/25 08:05 Temperature Pulse Rate 92 88 Blood Pressure 69/42 L 125/66 Pulse Oximetry 100 03/11/25 08:10 03/11/25 08:31 03/11/25 09:02 Temperature 97.7 F Pulse Rate 98 Blood Pressure 117/75 Pulse Oximetry 98 03/11/25 09:03 03/11/25 09:08 03/11/25 09:13 Temperature Pulse Rate Blood Pressure Pulse Oximetry 99 99 99 03/11/25 09:18 03/11/25 09:23 03/11/25 09:24 Temperature Pulse Rate Blood Pressure Pulse Oximetry 99 100 99 03/11/25 09:24 03/11/25 09:24 03/11/25 09:29 Temperature Pulse Rate Blood Pressure Pulse Oximetry 99 100 100 03/11/25 09:31 03/11/25 09:36 03/11/25 09:41 Temperature Pulse Rate 94 Blood Pressure 117/73 Pulse Oximetry 99 99 99 03/11/25 09:46 03/11/25 09:51 03/11/25 09:56 Temperature Pulse Rate Blood Pressure Pulse Oximetry 98 98 97 03/11/25 10:01 03/11/25 10:06 03/11/25 10:11 Temperature Pulse Rate 80 Blood Pressure 116/65 Pulse Oximetry 96 99 99 03/11/25 10:16 03/11/25 10:21 03/11/25 10:26 Temperature Pulse Rate Blood Pressure Pulse Oximetry 99 100 100 03/11/25 10:30 03/11/25 10:31 03/11/25 10:36 Temperature 98.2 F Pulse Rate 86 Blood Pressure 116/70 Pulse Oximetry 98 100 03/11/25 10:41 03/11/25 10:46 03/11/25 10:51 Temperature Pulse Rate Blood Pressure Pulse Oximetry 100 100 100 03/11/25 10:56 03/11/25 11:01 03/11/25 11:06 Temperature Pulse Rate 88 Blood Pressure 109/63 Pulse Oximetry 100 100 100 03/11/25 11:11 03/11/25 11:18 03/11/25 11:23 Temperature Pulse Rate Blood Pressure Pulse Oximetry 99 100 99 03/11/25 11:28 03/11/25 11:31 03/11/25 11:36 Temperature Pulse Rate 87 Blood Pressure 123/76 Pulse Oximetry 99 99 99 03/11/25 11:41 03/11/25 11:46 03/11/25 11:51 Temperature Pulse Rate Blood Pressure Pulse Oximetry 100 100 100 03/11/25 11:56 03/11/25 12:01 03/11/25 12:06 Temperature 98.1 F Pulse Rate 87 Blood Pressure 128/77 Pulse Oximetry 98 96 99 03/11/25 12:11 03/11/25 12:16 03/11/25 12:21 Temperature Pulse Rate Blood Pressure Pulse Oximetry 100 100 100 03/11/25 12:26 03/11/25 12:31 03/11/25 12:36 Temperature Pulse Rate 84 Blood Pressure 110/72 Pulse Oximetry 99 98 99 03/11/25 12:41 03/11/25 12:51 03/11/25 12:56 Temperature Pulse Rate Blood Pressure Pulse Oximetry 100 99 100 03/11/25 12:59 03/11/25 13:01 03/11/25 13:06 Temperature 98.2 F Pulse Rate Blood Pressure Pulse Oximetry 99 100 03/11/25 13:11 03/11/25 13:16 03/11/25 13:21 Temperature Pulse Rate Blood Pressure Pulse Oximetry 100 100 100 03/11/25 13:23 03/11/25 13:27 03/11/25 13:28 Temperature Pulse Rate 98 Blood Pressure 136/86 Pulse Oximetry 99 100 03/11/25 13:31 03/11/25 13:33 03/11/25 13:38 Temperature Pulse Rate 96 Blood Pressure 113/69 Pulse Oximetry 99 100 03/11/25 13:43 03/11/25 13:48 03/11/25 13:53 Temperature Pulse Rate Blood Pressure Pulse Oximetry 100 98 100 03/11/25 13:58 03/11/25 14:01 03/11/25 14:02 Temperature Pulse Rate 102 H Blood Pressure 124/58 L Pulse Oximetry 100 100 03/11/25 14:05 03/11/25 14:10 03/11/25 14:15 Temperature Pulse Rate Blood Pressure Pulse Oximetry 100 100 100 03/11/25 14:20 03/11/25 14:25 03/11/25 14:30 Temperature Pulse Rate Blood Pressure Pulse Oximetry 99 99 100 03/11/25 14:35 03/11/25 14:35 03/11/25 14:37 Temperature Pulse Rate Blood Pressure Pulse Oximetry 100 97 99 03/11/25 14:37 03/11/25 14:41 03/11/25 14:46 Temperature Pulse Rate Blood Pressure Pulse Oximetry 99 98 100 03/11/25 14:51 03/11/25 14:51 03/11/25 14:54 Temperature Pulse Rate Blood Pressure Pulse Oximetry 99 100 100 03/11/25 14:59 03/11/25 15:01 03/11/25 15:04 Temperature Pulse Rate 104 H Blood Pressure 135/87 Pulse Oximetry 100 100 03/11/25 15:13 03/11/25 15:16 03/11/25 15:21 Temperature 98.1 F Pulse Rate Blood Pressure Pulse Oximetry 100 100 100 03/11/25 15:26 03/11/25 15:31 03/11/25 15:36 Temperature Pulse Rate 98 Blood Pressure 134/84 Pulse Oximetry 100 99 100 03/11/25 15:41 03/11/25 15:46 03/11/25 15:51 Temperature Pulse Rate Blood Pressure Pulse Oximetry 99 100 100 03/11/25 15:56 03/11/25 16:01 03/11/25 16:06 Temperature Pulse Rate 101 H Blood Pressure 147/80 H Pulse Oximetry 100 99 100 03/11/25 16:11 03/11/25 16:16 03/11/25 16:21 Temperature Pulse Rate Blood Pressure Pulse Oximetry 100 100 100 03/11/25 16:26 03/11/25 16:31 03/11/25 16:38 Temperature Pulse Rate 100 Blood Pressure 140/79 Pulse Oximetry 99 100 100 03/11/25 16:43 03/11/25 16:48 03/11/25 16:53 Temperature Pulse Rate Blood Pressure Pulse Oximetry 99 99 100 03/11/25 16:58 03/11/25 17:03 03/11/25 17:05 Temperature Pulse Rate Blood Pressure Pulse Oximetry 99 100 99 03/11/25 17:10 03/11/25 17:15 03/11/25 17:16 Temperature Pulse Rate 83 Blood Pressure 120/80 Pulse Oximetry 100 99 03/11/25 17:20 03/11/25 17:25 03/11/25 17:30 Temperature 98.3 F Pulse Rate Blood Pressure Pulse Oximetry 100 100 100 03/11/25 17:31 03/11/25 17:35 03/11/25 17:40 Temperature Pulse Rate 79 Blood Pressure 102/72 Pulse Oximetry 100 100 03/11/25 17:45 03/11/25 17:52 03/11/25 17:57 Temperature Pulse Rate Blood Pressure Pulse Oximetry 99 99 100 03/11/25 18:01 03/11/25 18:02 03/11/25 18:07 Temperature Pulse Rate 95 Blood Pressure 123/82 Pulse Oximetry 100 100 03/11/25 18:12 03/11/25 18:17 03/11/25 18:24 Temperature Pulse Rate Blood Pressure Pulse Oximetry 99 99 100 03/11/25 18:29 03/11/25 18:31 03/11/25 18:34 Temperature Pulse Rate 89 Blood Pressure 107/73 Pulse Oximetry 99 98 03/11/25 18:39 03/11/25 18:44 03/11/25 18:49 Temperature Pulse Rate Blood Pressure Pulse Oximetry 99 98 98 03/11/25 18:54 03/11/25 18:56 03/11/25 19:00 Temperature 97.7 F Pulse Rate Blood Pressure Pulse Oximetry 99 100 03/11/25 19:01 03/11/25 19:06 03/11/25 19:11 Temperature Pulse Rate 82 Blood Pressure 112/64 Pulse Oximetry 98 100 99 03/11/25 19:16 03/11/25 19:21 03/11/25 19:26 Temperature Pulse Rate Blood Pressure Pulse Oximetry 100 100 99 03/11/25 19:30 03/11/25 19:30 03/11/25 19:31 Temperature Pulse Rate 81 Blood Pressure 104/63 Pulse Oximetry 100 100 03/11/25 19:35 03/11/25 19:40 03/11/25 19:45 Temperature Pulse Rate Blood Pressure Pulse Oximetry 98 99 97 03/11/25 19:50 03/11/25 19:55 03/11/25 20:00 Temperature Pulse Rate Blood Pressure Pulse Oximetry 97 96 96 03/11/25 20:01 03/11/25 20:05 03/11/25 20:10 Temperature Pulse Rate 96 Blood Pressure 112/60 Pulse Oximetry 96 95 03/11/25 20:15 03/11/25 20:20 03/11/25 20:25 Temperature Pulse Rate Blood Pressure Pulse Oximetry 96 96 98 03/11/25 20:30 03/11/25 20:31 03/11/25 20:34 Temperature Pulse Rate 90 Blood Pressure 112/69 Pulse Oximetry 94 100 03/11/25 20:39 03/11/25 20:44 03/11/25 20:49 Temperature Pulse Rate Blood Pressure Pulse Oximetry 97 98 96 03/11/25 20:58 03/11/25 21:03 03/11/25 21:08 Temperature Pulse Rate Blood Pressure Pulse Oximetry 99 100 100 03/11/25 21:11 03/11/25 21:16 03/11/25 21:20 Temperature Pulse Rate 90 79 Blood Pressure 135/110 H 123/75 Pulse Oximetry 99 98 03/11/25 21:21 03/11/25 21:26 03/11/25 21:31 Temperature Pulse Rate 86 Blood Pressure 122/77 Pulse Oximetry 99 99 95 03/11/25 21:36 03/11/25 21:41 03/11/25 21:42 Temperature Pulse Rate Blood Pressure Pulse Oximetry 98 100 78 L 03/11/25 21:42 03/11/25 21:46 03/11/25 21:47 Temperature Pulse Rate 82 Blood Pressure 124/86 Pulse Oximetry 78 L 98 03/11/25 21:52 03/11/25 21:57 03/11/25 22:01 Temperature Pulse Rate 94 Blood Pressure 123/79 Pulse Oximetry 97 99 03/11/25 22:02 03/11/25 22:07 03/11/25 22:08 Temperature Pulse Rate Blood Pressure Pulse Oximetry 97 98 98 03/11/25 22:13 03/11/25 22:16 03/11/25 22:18 Temperature Pulse Rate 84 Blood Pressure 124/86 Pulse Oximetry 98 98 03/11/25 22:23 03/11/25 22:28 03/11/25 22:31 Temperature Pulse Rate 79 Blood Pressure 124/66 Pulse Oximetry 99 99 03/11/25 22:33 03/11/25 22:38 03/11/25 22:41 Temperature Pulse Rate Blood Pressure Pulse Oximetry 98 98 99 03/11/25 22:46 03/11/25 22:46 03/11/25 22:46 Temperature Pulse Rate Blood Pressure 113/69 Pulse Oximetry 97 95 03/11/25 22:46 03/11/25 22:49 03/11/25 22:51 Temperature Pulse Rate 71 Blood Pressure Pulse Oximetry 96 99 03/11/25 22:55 03/11/25 23:00 03/11/25 23:01 Temperature Pulse Rate 84 Blood Pressure 122/78 Pulse Oximetry 99 98 98 03/11/25 23:02 03/11/25 23:07 03/11/25 23:13 Temperature Pulse Rate Blood Pressure Pulse Oximetry 99 99 99 03/11/25 23:14 03/11/25 23:16 03/11/25 23:19 Temperature Pulse Rate 74 Blood Pressure 116/75 Pulse Oximetry 99 96 03/11/25 23:24 03/11/25 23:29 03/11/25 23:31 Temperature Pulse Rate 87 Blood Pressure 116/72 Pulse Oximetry 96 96 03/11/25 23:34 03/11/25 23:39 03/11/25 23:43 Temperature Pulse Rate Blood Pressure Pulse Oximetry 96 96 97 03/11/25 23:46 03/11/25 23:48 03/11/25 23:53 Temperature Pulse Rate 80 Blood Pressure 112/71 Pulse Oximetry 95 95 03/11/25 23:58 03/12/25 00:01 03/12/25 00:03 Temperature 98 F Pulse Rate 90 Blood Pressure 113/69 Pulse Oximetry 95 99 03/12/25 00:08 03/12/25 00:13 03/12/25 00:16 Temperature Pulse Rate 97 Blood Pressure 112/72 Pulse Oximetry 99 96 03/12/25 00:18 03/12/25 00:23 03/12/25 00:28 Temperature Pulse Rate Blood Pressure Pulse Oximetry 97 97 97 03/12/25 00:31 03/12/25 00:33 03/12/25 00:38 Temperature Pulse Rate 91 Blood Pressure 102/59 L Pulse Oximetry 97 96 03/12/25 00:43 03/12/25 00:48 03/12/25 00:53 Temperature Pulse Rate Blood Pressure Pulse Oximetry 94 96 97 03/12/25 00:58 03/12/25 01:01 03/12/25 01:03 Temperature Pulse Rate 104 H Blood Pressure 115/72 Pulse Oximetry 97 97 03/12/25 01:08 03/12/25 01:13 03/12/25 01:16 Temperature Pulse Rate 102 H Blood Pressure 106/69 Pulse Oximetry 97 97 03/12/25 01:18 03/12/25 01:23 03/12/25 01:28 Temperature Pulse Rate Blood Pressure Pulse Oximetry 97 97 96 03/12/25 01:33 03/12/25 01:38 03/12/25 01:43 Temperature Pulse Rate Blood Pressure Pulse Oximetry 98 97 97 03/12/25 01:46 03/12/25 01:48 03/12/25 01:53 Temperature Pulse Rate 87 Blood Pressure 116/66 Pulse Oximetry 97 98 03/12/25 01:58 03/12/25 02:01 03/12/25 02:03 Temperature Pulse Rate 87 Blood Pressure 115/68 Pulse Oximetry 97 96 03/12/25 02:08 03/12/25 02:13 03/12/25 02:16 Temperature Pulse Rate 81 Blood Pressure 122/77 Pulse Oximetry 98 97 03/12/25 02:18 03/12/25 02:23 03/12/25 02:28 Temperature 98.2 F Pulse Rate Blood Pressure Pulse Oximetry 96 98 100 03/12/25 02:30 03/12/25 02:38 03/12/25 02:43 Temperature 98.2 F Pulse Rate Blood Pressure Pulse Oximetry 99 99 03/12/25 02:46 03/12/25 02:48 03/12/25 02:53 Temperature Pulse Rate 77 Blood Pressure 133/90 Pulse Oximetry 99 99 03/12/25 02:58 03/12/25 03:01 03/12/25 03:03 Temperature Pulse Rate 85 Blood Pressure 133/81 Pulse Oximetry 98 100 03/12/25 03:08 03/12/25 03:13 03/12/25 03:17 Temperature Pulse Rate Blood Pressure Pulse Oximetry 100 99 99 03/12/25 03:22 03/12/25 03:27 03/12/25 03:31 Temperature Pulse Rate 106 H Blood Pressure 118/89 Pulse Oximetry 100 99 03/12/25 03:32 03/12/25 03:37 03/12/25 03:42 Temperature Pulse Rate Blood Pressure Pulse Oximetry 99 100 99 03/12/25 03:46 03/12/25 03:47 03/12/25 03:52 Temperature Pulse Rate 95 Blood Pressure 128/95 H Pulse Oximetry 99 100 03/12/25 03:57 03/12/25 04:01 03/12/25 04:02 Temperature Pulse Rate 92 Blood Pressure 116/76 Pulse Oximetry 99 100 03/12/25 04:07 03/12/25 04:12 03/12/25 04:16 Temperature Pulse Rate 90 Blood Pressure 123/64 Pulse Oximetry 100 99 03/12/25 04:17 03/12/25 04:22 03/12/25 04:27 Temperature Pulse Rate Blood Pressure Pulse Oximetry 98 100 99 03/12/25 04:31 03/12/25 04:36 03/12/25 04:41 Temperature Pulse Rate 84 Blood Pressure 123/78 Pulse Oximetry 98 98 03/12/25 04:46 03/12/25 04:51 03/12/25 04:54 Temperature Pulse Rate 79 Blood Pressure 122/67 Pulse Oximetry 100 100 100 03/12/25 04:54 03/12/25 04:55 03/12/25 04:58 Temperature Pulse Rate Blood Pressure Pulse Oximetry 98 98 99 03/12/25 04:58 03/12/25 05:01 03/12/25 05:02 Temperature Pulse Rate 71 Blood Pressure 225/208 H Pulse Oximetry 99 100 03/12/25 05:03 03/12/25 05:04 03/12/25 05:09 Temperature Pulse Rate Blood Pressure Pulse Oximetry 98 97 99 03/12/25 05:12 03/12/25 05:14 03/12/25 05:16 Temperature Pulse Rate 94 90 89 Blood Pressure 140/75 137/61 135/95 H Pulse Oximetry 100 03/12/25 05:18 03/12/25 05:21 03/12/25 05:23 Temperature Pulse Rate 89 96 99 Blood Pressure 130/88 137/83 132/84 Pulse Oximetry 99 03/12/25 05:26 03/12/25 05:28 03/12/25 05:31 Temperature Pulse Rate 143 H 84 89 Blood Pressure 131/89 122/68 121/74 Pulse Oximetry 100 99 03/12/25 05:33 03/12/25 05:36 03/12/25 05:38 Temperature Pulse Rate 93 84 102 H Blood Pressure 117/74 117/80 121/82 Pulse Oximetry 99 03/12/25 05:41 03/12/25 05:43 03/12/25 05:46 Temperature Pulse Rate 93 80 86 Blood Pressure 121/80 120/71 120/74 Pulse Oximetry 100 100 03/12/25 05:48 03/12/25 05:51 03/12/25 05:53 Temperature Pulse Rate 81 81 86 Blood Pressure 118/72 115/76 118/75 Pulse Oximetry 97 97 03/12/25 05:56 03/12/25 05:58 03/12/25 06:01 Temperature Pulse Rate 89 85 98 Blood Pressure 119/72 114/69 133/69 Pulse Oximetry 95 03/12/25 06:03 03/12/25 06:06 03/12/25 06:08 Temperature Pulse Rate 96 95 94 Blood Pressure 122/65 110/59 L 111/58 L Pulse Oximetry 100 99 03/12/25 06:11 03/12/25 06:13 03/12/25 06:16 Temperature Pulse Rate 95 90 87 Blood Pressure 115/92 H 112/59 L 103/46 L Pulse Oximetry 100 03/12/25 06:18 03/12/25 06:23 Temperature Pulse Rate Blood Pressure Pulse Oximetry 100 100 Exam Const: General: healthy appearing and alert Orientation/consciousness: patient oriented x3 Resp: Effort & Inspection: normal respiratory effort GI: GI Palp: Yes Soft to palpation, No Tenderness to palpation present (GI) and Yes Other GI palpation findings present (Gravid with fundal height of 40) : External Female Exam: normal external appearance Manual OB Exam: dilated 2 cm and effaced 50% Amniotic Fluid: clear Neuro: General: patient oriented x3 Assessment and Plan Assessment and plan (1) 39 weeks gestation of : Code(s): Z3A.39 - 39 weeks gestation of Status: Acute (2) intolerance to labor, delivered, current hospitalization: Code(s): O77.9 - Labor and delivery complicated by stress, unspecified Status: Acute Assessment and Plan: Plan to proceed with primary section now (3) Failure to progress in labor: Code(s): O62.2 - Other uterine inertia Status: Acute (4) Gestational diabetes mellitus (GDM) requiring insulin: Code(s): O24.414 - Gestational diabetes mellitus in , insulin controlled Status: Acute
--- NOTE | 2025-03-12 06:31 | WPDHPUPDATE1 ---
History and Physical Update Update Date/Time: 03/12/25 06:31 History and Physical has been reviewed, including an updated exam of the patient. There are changes in the patient's condition. Risks, benefits, and alternatives have been discussed and questions answered. Patient agrees to proceed with procedure. See history and physical
[2025-03-12] MEDS: FAMOTIDINE 20 MG/2 ML VIAL IV PUSH (06:37)
[2025-03-12] MEDS: ONDANSETRON INJ 4 MG/2 ML VIAL IV PUSH (06:37)
[2025-03-12] MEDS: AZITHROMYCIN IV 500 MG VIAL (06:41)
--- NOTE | 2025-03-12 07:02 | S_PTH ---
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
--- NOTE | 2025-03-12 07:21 | P.PCNOB_ITS ---
OB - Delivery Note Procedure Delivery date: 03/12/25 Pre-op diagnosis: Gestational Diabetes (GDM A2, 39 weeks) Post-op Diagnosis: Other (Failure to progress, intolerance of labor) Induction method: AROM, Per Pitocin Protocol and Per Cervidil Protocol Delivery monitor: External FHT and Internal Uterine Prior to decision for section, ACOG/SMFM labor guidelines were considered and discussed with the patient and staff. Decision made to proceed with the section.: Yes Procedure Performed: Primary Primary branch: low cervical, tr ansverse Surgeon: Nelly Bolivar MD Anesthesia type: Epidural Description of Procedure/Findings: The patient was taken to the operating room and placed under epidural anesthesia in the dorsal supine position with leftward tilt. Once anesthesia was deemed adequate, she was prepped and draped in the usual sterile fashion. Pfannenstiel skin incision was made with a scalpel and carried down to the underlying layer of fascia which was nicked in the midline. The incision was extended laterally using Hook scissors. O[facility] was used to tent the fascia which was dissected off using sharp and blunt dissection. The peritoneum was tented and entered with Metzenbaum scissors. The bladder blade was placed in the vesicouterine peritoneum tented. Bladder blade was created with Metzenbaum laterally and digitally. The lower uterine segment was incised in transverse fashion with the scalpel and extended with blunt traction. The infant's vertex was delivered through the incision while the marketing communications assistant applied fundal pressure. The remainder of the infant was delivered. The cord was completely white over the area with no blood in it. Delayed cord clamping for the full minute was performed. Infant was vigorous on the abdomen. The cord was clamped and cut the handed to the waiting nursery nurse. Cord blood and cord gases were taken. The placenta was removed using manual traction. The uterus was cleared of all clots and debris. The uterine incision was closed using 0 Monocryl in a running locked fashion with the same suture used to imbricate. One additional figure of 8 was required in the midline. The gutters were irrigated and the incision was noted to be hemostatic. The fascia was closed using 0 Vicryl in a running fashion. Subcutaneous tissues were irrigated made hemostatic. Skin was closed using 4-0 Vicryl in a subcuticular fashion. Sponge, needle, and instrument counts are correct per the OR staff. The patient received Ancef and Zithromax. Specimen: Yes (Placenta) Estimated Blood Loss: 1,025 Drains: Yes (Rizzo) Packing: No Pathology: Yes (Placenta) Complications: No immediate complications Condition: Stable Disposition: Floor Baby Date of : 03/12/25 Gestational Age by Date: 39 gender: Female Weight (pounds): 6 Weight (ounces): 6 presentation: vertex position: Left Occiput Anterior Placenta delivery description: Spontaneous Cord Vessel Description: 3 Vessels and Delayed Cord Clamping score one minute: 8 score five minutes: 9
[2025-03-12] MEDS: ACETAMINOPHEN 500 MG TABLET 1000 MG PO ×3 (08:50→22:45)
[2025-03-12] MEDS: OXYTOCIN 30 UNITS/NS 500 ML 30 UNITS/500 ML BAG 125 UNITS IV CONT (08:51)
[2025-03-12] MEDS: LIDOCAINE 5% PATCH 1 PATCH TRANSDERM (09:22)
--- NOTE | 2025-03-12 10:37 | OBPPTRN ---
Patient transferred to post room #[id number] via ( stretcher ). Support person present. Oriented to unit, room, information board, rooming in, admission packet and security measures. Patient verbalizes understanding.
--- NOTE | 2025-03-12 13:36 | P.DS_ITS ---
DS: Admitting Diagnosis Discharge Date 03/14/25 Admitting Diagnosis IUP 39 wks GDMA2 MIL DS: Discharge Diagnosis Discharge Diagnosis (1) Delivery by section using transverse incision of lower segment of uterus: Code(s): O82 - Encounter for delivery without indication Status: Acute (2) Gestational diabetes mellitus (GDM) requiring insulin: Code(s): O24.414 - Gestational diabetes mellitus in , insulin controlled Status: Acute OB - DS: Summary OB Procedures : NST, Ultrasound and Other (diabetes management) OB Procedures Intrapartum: low cervical, transverse OB Procedures: : None Peripartum Data Infant Delivery Method: Section Procedures: Procedures Operation Date: 03/12/25 06:30 Actual Procedure Side Surgeon p Section Nelly Bolivar MD complications: none Status at Discharge Functional status at discharge: independent ambulation Overall status at discharge: patient is progressing back to baseline Time Spent with Patient Time attestation: Total time spent providing and/or coordinating discharge services: DS: Data Data Completed and Pending Pending studies at discharge: Pending at discharge 03/12/25 07:02 Surgical [PTH] Routine Labs on day of discharge: Labs from last 24 hours 03/12/25 03/11/25 03/11/25 02:30 22:26 18:27 POC Capillary Glucose 79 77 110 H 03/11/25 03/11/25 14:30 14:28 POC Capillary Glucose 112 H 108 H Discharge Plan Discharge Attending physician on discharge: Nelly Bolivar Discharging Clinician: Nelly Bolivar Anticipated Discharge Date/Time: 03/15/25 13:37 Patient Disposition: Home Activity: may shower, may drive after 2 weeks and pelvic rest Diet: diabetic Patient Instructions: Antibiotic Form Patient Language: [place] Stand Alone Forms: General Discharge Information Follow-up/Referrals: Nelly Bolivar MD [Physician, [facility]] - 1 Week Referral Note: and 6 wk Discharge Medications: New oxycodone 5 mg Tablet 5 mg PO Q4H PRN (Reason: Pain Rated 4-6) Qty: 14 0RF norethindrone-e.estradiol-iron 1 mg-20 mcg (24)/75 mg (4) tablet 1 tablet PO DAILY Qty: 84 1RF Rx Instructions: start in 3 wks on Tuesday Continued PNV no.95-ferrous fumarate-FA [] 28 mg iron- 800 mcg tablet 1 tablet PO DAILY ferrous sulfate [Feosol] 325 mg (65 mg iron) tablet 325 mg PO DAILY ergocalciferol (vitamin D2) 1,250 mcg (50,000 unit) capsule 50,000 unit PO WEEKLY Patient Comments: Pt takes every Tuesday Discontinued insulin NPH isoph U-100 human 100 unit/mL cartridge 10 unit subcut QPM Date of admission: 03/10/25 16:50 Primary Care Provider: PHYSICIAN,[employer]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
[2025-03-12] MEDS: KETOROLAC 15 MG/ML VIAL (*BKC) IV PUSH ×2 (14:01→22:45)
[2025-03-12] MEDS: SIMETHICONE 80 MG TAB.CHEW PO (14:01)
[2025-03-13] MEDS: ACETAMINOPHEN 500 MG TABLET 1000 MG PO ×4 (04:00→23:10)
[2025-03-13] MEDS: KETOROLAC 15 MG/ML VIAL (*BKC) (04:00)
[2025-03-13 05:12] LABS: Hematocrit 25.3 % (37.0-47.0); Hemoglobin 8.3 g/dL (12.0-15.0); Immature Granulocyte Percent A 0.4 % (0-0.5); Lymphocytes Absolute Auto 1.70 K/mm3 (0.9-3.2); Mean Corpuscular HGB Conc 32.8 g/dl (32-36); Mean Corpuscular Hemoglobin 29.6 pg (26-34); Mean Corpuscular Volume 90.4 fl (80-100); Nucleated Red Blood Cells Absolute Auto 0.000 K/mm3 (0.0-0.012); Nucleated Red Blood Cells Perc 0.0 % (0.0-0.2); Platelet Count Result 139 k/mm3 (150-375); Red Blood Count 2.80 M/mm3 (4.2-5.4); White Blood Count 8.9 K/mm3 (4.5-10.0)
[2025-03-13 07:50] VITALS: BP 117/75; PULSE 99; RESP 18; TEMP 36.5; O2SAT 99
--- NOTE | 2025-03-13 07:58 | PM.OBPNVD ---
OB - PN: Subj Subjective Date/time seen: 03/13/25 07:58 Patient comments: no complaints and pain well controlled baby status: doing well OB - PN: Obj Data Labs 03/13/25 03:48 Labs: Laboratory Results - last 24 hr 03/13/25 03/13/25 03/13/25 03:48 07:01 07:24 WBC 8.9 RBC 2.80 L Hgb 8.3 L Hct 25.3 L MCV 90.4 MCH 29.6 MCHC 32.8 RDW 16.9 H Plt Count 139 L MPV 12.9 H Immature Gran % (Auto) 0.4 Neut % (Auto) 71.3 Lymph % (Auto) 19.0 Wallace % (Auto) 8.6 H Eos % (Auto) 0.4 Baso % (Auto) 0.3 Lymph # (Auto) 1.70 Wallace # (Auto) 0.8 H Eos # (Auto) 0.0 Baso # (Auto) 0.0 Abs Immat Gran (auto) 0.04 H Absolute Neuts (auto) 6.4 Absolute Nucleated RBC 0.000 Nucleated RBC % 0.0 POC Capillary Glucose 64 L 74 OB - PN A/P Plan day: 1 Plan: routine care Time Spent With Patient Time: Total time spent is greater than 50% in coordination of care (as documented) at patient's floor/unit and/or counseling patient: Exam Narrative: inc c/d/i : Bimanual exam- vagina & uterus: other (Uterus firm, nt @U)
[2025-03-13] MEDS: DOCUSATE SODIUM 100 MG CAPSULE PO ×2 (08:29→17:32)
[2025-03-13] MEDS: MULTIVIT/MIN/PREN/FOL AC/IRON TABLET 1 TAB PO (08:29)
[2025-03-13] MEDS: SIMETHICONE 80 MG TAB.CHEW PO ×3 (08:29→17:32)
[2025-03-13] MEDS: IBUPROFEN 600 MG TABLET PO ×3 (09:31→23:10)
--- NOTE | 2025-03-13 09:59 | WPDANLDNPN2 ---
Anes-Prog Note L&D-Neuraxial Date/Time: 03/13/25 09:59 Patient feedback: Patient satisfied with post-operative pain management.
--- NOTE | 2025-03-13 09:59 | WPDANLDPN2 ---
Anes-Prog Note L&D Date/Time: 03/13/25 09:59 Neuro status: Neuro function grossly intact. Cardiovascular status: normal Respiratory status: normal Airway patency: baseline Mental status: baseline Post-Op hydration status: normal Vital Signs: Last Vital Signs Temp 36.5 C 03/13/25 07:50 Pulse 99 03/13/25 07:50 Resp 18 03/13/25 07:50 BP 117/75 03/13/25 07:50 Pulse Ox 99 03/13/25 07:50 O2 Del Method Room Air 03/13/25 07:00 Pain score (VAS): 0 I/O: Intake & Output 03/12/25 03/13/25 03/13/25 23:59 07:59 15:59 Intake Total 240 Output Total 750 1400 175 Balance -750 -1400 65 Post-procedural complaints: none Patient feedback: Patient satisfied with anesthetic care.
[2025-03-13] MEDS: LIDOCAINE 5% PATCH 1 PATCH TRANSDERM (15:30)
[2025-03-13] MEDS: oxyCODONE HCL (*CRX) 5 MG TAB IR 10 MG PO (19:05)
[2025-03-13 19:11] VITALS: BP 117/61; PULSE 93; RESP 20; TEMP 37.4; O2SAT 98
[2025-03-14] MEDS: oxyCODONE HCL (*CRX) 5 MG TAB IR 10 MG PO (01:30)
[2025-03-14] MEDS: IBUPROFEN 600 MG TABLET PO ×2 (04:50→11:00)
[2025-03-14] MEDS: ACETAMINOPHEN 500 MG TABLET 1000 MG PO ×2 (04:50→11:00)
[2025-03-14 07:40] VITALS: BP 124/72; PULSE 86; RESP 18; TEMP 37; O2SAT 99
--- NOTE | 2025-03-14 07:57 | P.PNOB_ITS ---
OB - PN: Subj Subjective Date/time seen: 03/14/25 07:57 Patient comments: no complaints and pain well controlled baby status: doing well OB - PN: Obj Data Labs 03/13/25 03:48 Labs: Laboratory Results - last 24 hr 03/13/25 03/13/25 09:34 13:54 POC Capillary Glucose 90 89 OB - PN A/P Plan day: 2 Plan: routine care, discharge home, follow up 6 weeks and other (plans oc's) Time Spent With Patient Time: Total time spent is greater than 50% in coordination of care (as documented) at patient's floor/unit and/or counseling patient: Exam 2 Narrative: inc c/d/i : Bimanual exam- vagina & uterus: other (Uterus firm, nt @U)
[2025-03-14] MEDS: oxyCODONE HCL (*CRX) 5 MG TAB IR PO (08:18)
[2025-03-14] MEDS: DOCUSATE SODIUM 100 MG CAPSULE PO (08:18)
[2025-03-14] MEDS: MULTIVIT/MIN/PREN/FOL AC/IRON TABLET 1 TAB PO (08:18)
[2025-03-14] MEDS: SIMETHICONE 80 MG TAB.CHEW PO ×2 (08:18→11:00)
--- NOTE | 2025-03-14 09:27 | PC.NURSE ---
Patient viewed the discharge video Mother & Baby Care, The First Two Weeks. Patient was given the opportunity and encouraged to ask questions. Patient verbalized understanding of information shared and has been given the mother/baby guide for home reference.
[2025-03-15 14:03] VITALS: BP 131/79; PULSE 95; RESP 20; TEMP 37.2; O2SAT 99
== END 2025-03-14 12:25 | disposition home or self-care (01) | DRG 540 ==
LOC: ANHLDR 16:55 → ANHOB2 03-12 10:05
PROVIDERS: Admitting Provider Obstetrics & Gynecology Gynecology; Visit Provider Obstetrics & Gynecology Gynecology
PROC: 10D00Z1 Extraction of Products of Conception, Low, Open Approach (ICD-10-PCS; CPT 59514; principal; 2025-03-12 06:30)
DX: O24.424 Gestational diabetes mellitus in childbirth, insulin controlled (principal); Z37.0 Single live birth; Z3A.39 39 weeks gestation of pregnancy; O62.1 Secondary uterine inertia; O77.9 Labor and delivery complicated by fetal stress, unspecified
CPT/HCPCS: 36415; 82948; 85025; 86593; 86850; 86900; 86901; 88307; J0690; A9270; J0456; J1815; J1885; J2003; J2274; J2371; J2405; J2590; J2795; J3010; J7120